=== PATIENT | male | born 1930 | race African-American/Black ===

== ENCOUNTER 2018-11-02 18:10 | Emergency (ER) | payer MEDICARE, OTHER ==
[~2018-11-02] VITALS: Ht 170.2 cm; Wt 96.0 kg
[2018-11-02] MEDS ORDERED: MORPHINE SULFATE 4 MG/ML CPJ (NOT FOR IM USE) IV STA (22:58)
[2018-11-02] MEDS ORDERED: ONDANSETRON HCL 4MG/2ML INJ IV STA (22:58)
[2018-11-02] MEDS ORDERED: KETOROLAC 30MG/ML VIAL IV STA (22:58)
[2018-11-02 23:38] LABS: HEMATOCRIT. 39.8 % (42.0-52.0); HEMOGLOBIN. 13.2 g/dL (14.0-18.0); MEAN CORPUSCULAR HEMOGLOBIN 26.9 pg (28.0-32.0); MEAN PLATELET VOLUME 8.6 fl (7.4-10.4); PLATELET 199 x1000/uL (130-400); RED BLOOD CELL COUNT 4.92 mill/uL (4.7-6.1); RED CELL DISTRIBUTION WIDTH 15.1 % (11.6-14.6)
[2018-11-02 23:45] LABS: CHLORIDE 104 mEq/L (98-107)
[2018-11-03 00:19] LABS: PLATELET ESTIMATE NORMAL
[2018-11-03 02:39] VITALS: BP 123/71
== END 2018-11-03 02:41 | disposition home or self-care (01) ==
LOC: ER 18:10
DX: S42.291A Other displaced fracture of upper end of right humerus, initial encounter for closed fracture (principal); W01.0XXA Fall on same level from slipping, tripping and stumbling without subsequent striking against object, initial encounter; Y93.89 Activity, other specified; Y92.017 Garden or yard in single-family (private) house as the place of occurrence of the external cause
CPT/HCPCS: 36415; 71045; 73030; 80053; 85025; 96374; 96375; 99283; J1885; J2270; J2405; A4565